=== PATIENT | female | born 1995 | race Caucasian/White ===

== ENCOUNTER 2017-01-11 23:53 | Emergency (ER) | payer OTHER ==
[~2017-01-11] VITALS: Ht 165.1 cm; Wt 96.8 kg
[2017-01-12 01:07] LABS: URINE BLOOD DIPSTICK LARGE (NEGATIVE); URINE CLARITY TURBID; URINE COLOR YELLOW; URINE GLUCOSE - DIPSTICK NEGATIVE (NEGATIVE); URINE KETONE NEGATIVE (NEGATIVE); URINE PROTEIN - DIPSTICK TRACE mg/dL (NEG-TRACE); URINE SPECIFIC GRAVITY 1.025; URINE UROBILINOGEN - DIPSTICK 0.2 E.U./dL (0.2)
[2017-01-12 01:11] LABS: URINE BILIRUBIN - DIPSTICK SMALL (NEGATIVE); URINE LEUK ESTERASE LARGE (NEGATIVE); URINE NITRITE - DIPSTICK POSITIVE (Negative)
[2017-01-12 01:14] LABS: URINE BACTERIA MANY hpf; URINE MUCUS MODERATE hpf (NONE-FEW); URINE SQUAMOUS EPITHELIAL CELL FEW EPI/hpf (0-FEW); URINE WBC 20-50 WBC/hpf (0-5)
[2017-01-12] MEDS ORDERED: CEPHALEXIN500 MG PO (01:20)
[2017-01-12] MEDS ORDERED: BACTRIM DS1 TAB PO (01:20)
[2017-01-12] MEDS ORDERED: ULTRAM50 M1 PO (01:20)
[2017-01-12 01:47] VITALS: BP 120/77
--- NOTE | 2017-01-14 08:21 | NUR ---
PHARMACY MEDICATION FOLLOW-UP Patient was seen in ED on 01/12/17 Cultures were reviewed from: Urine Patient was discharged with Rx for:BACTRIM DS, KEFLEX C&S report came back with Growth and Sensitive to medication PLAN: Recommended: No Change Comment:
== END 2017-01-12 01:43 | disposition home or self-care (01) | DRG 603 ==
LOC: ED 23:53
PROVIDERS: Emergency Medicine
DX: L05.01 Pilonidal cyst with abscess (principal); N39.0 Urinary tract infection, site not specified; B96.20 Unspecified Escherichia coli [E. coli] as the cause of diseases classified elsewhere